=== PATIENT | female | born 1990 | race Caucasian/White ===

== ENCOUNTER → 2025-03-05 08:55 | Outpatient (CLI) | payer OTHER, SELFPAY ==
[2025-03-05 10:09] LABS: Appearance Urine UA CLEAR; Bilirubin Urine UA NEGATIVE (NEGATIVE); Color Urine UA YELLOW; Glucose Urine UA NEGATIVE (Negative); Ketones Urine UA NEGATIVE (NEGATIVE); Leukocyte Esterase Urine UA NEGATIVE (NEGATIVE); Nitrite Urine UA NEGATIVE (Negative); Occult Blood Urine UA NEGATIVE (Negative); Protein Urine UA NEGATIVE (Negative); Specific Gravity Urine UA <=1.005 (1.000-1.035); Urobilinogen Urine UA 0.2 E.U./dL (0.2)
[2025-03-05 10:12] LABS: Urine Volume 10mL (spun); pH Urine UA 6.5 (4.5-8.0)
[2025-03-05 10:14] LABS: Bacteria Urine None Seen; Culture Indicated Urine Cult Not Indicated; RBC Urine None Seen (0-5/HPF); Squamous Epithelial Cell Urine None Seen (0-5/HPF); WBC Urine None Seen (0-5/HPF)
== END ==
LOC: RESP 08:57
PROVIDERS: Referring Provider Chiropractor; Visit Provider Chiropractor
DX: J42 Unspecified chronic bronchitis (principal); E11.9 Type 2 diabetes mellitus without complications
CPT/HCPCS: 81001; 94060

== ENCOUNTER → 2025-03-07 11:18 | Outpatient (CLI) | payer OTHER, SELFPAY ==
[2025-03-07 13:32] LABS: Alanine Aminotransferase 16 IU/L (<35); Albumin 4.7 g/dL (3.5-5.0); Alkaline Phosphatase 39 U/L (38-126); Aspartate Aminotransferase 27 IU/L (14-36); BUN Creatinine Ratio 21.4 (6-22); Blood Urea Nitrogen 12 mg/dL (7-17); Calcium 9.5 mg/dL (8.4-10.2); Carbon Dioxide 27 mmol/L (22-32); Chloride 104 mmol/L (98-107); Estimated Glomerular Filt Rate > 60 mL/min (>60); Globulin 2.4 g/dL (1.7-4.1); Glucose 79 mg/dL (70-99); HEMOLYSIS < 15 (0-50); Potassium 4.5 mmol/L (3.4-5.1); Sodium 139 mmol/L (137-145); Total Protein 7.1 g/dL (6.3-8.2)
== END ==
LOC: LAB 11:19
PROVIDERS: Referring Provider Chiropractor; Visit Provider Chiropractor
DX: J42 Unspecified chronic bronchitis (principal); E11.9 Type 2 diabetes mellitus without complications
CPT/HCPCS: 36415; 80053

== ENCOUNTER → 2025-08-28 15:33 | Outpatient (CLI) | payer OTHER, SELFPAY ==
[2025-08-28 19:45] LABS: Urine N gonorrhoeae NOT DETECTED
[2025-08-28 20:10] LABS: Urine Chlamydia NOT DETECTED
== END ==
PROVIDERS: Visit Provider Obstetrics & Gynecology
DX: Z11.3 Encounter for screening for infections with a predominantly sexual mode of transmission (principal); O20.8 Other hemorrhage in early pregnancy; O09.521 Supervision of elderly multigravida, first trimester
CPT/HCPCS: 87491; 87591

== ENCOUNTER → 2025-08-30 16:47 | Outpatient (CLI) | payer OTHER, SELFPAY ==
--- NOTE | 2025-08-30 16:53 | DI.US.S_ITS ---
PROCEDURE: US OB <= 14 WEEKS FETUS
== END ==
PROVIDERS: PCP Internal Medicine; Referring Provider Obstetrics & Gynecology; Visit Provider Obstetrics & Gynecology
DX: O20.8 Other hemorrhage in early pregnancy (principal); O09.521 Supervision of elderly multigravida, first trimester; Z3A.08 8 weeks gestation of pregnancy
CPT/HCPCS: 76801; 76817

== ENCOUNTER → 2025-09-11 11:22 | Outpatient (CLI) | payer OTHER, SELFPAY ==
[2025-09-11 12:02] LABS: Add Manual Diff / Slide Review NO; Hematocrit 37.1 % (36-46); Hemoglobin 12.9 g/dL (12.0-16.0); Lymphocytes Absolute Auto 1600 /uL (1100-4500); Mean Corpuscular HGB Conc 34.7 % (30-36); Mean Corpuscular Hemoglobin 33.6 PG (26-34); Mean Corpuscular Volume 96.6 fL (80-100); Platelet Count 286 X10^3/uL (150-400)
[2025-09-11 12:41] LABS: Natera Collection Specimen Collected
[2025-09-11 12:45] LABS: Free T4, Direct Thyroxine 1.18 ng/dL (0.78-2.19)
[2025-09-11 12:59] LABS: Thyroid Stimulating Hormone 1.15 uIU/mL (0.47-4.68)
[2025-09-11 15:32] LABS: Hepatitis B Surface Antigen NEGATIVE s/c (NEGATIVE)
[2025-09-11 15:50] LABS: HIV 1 & 2 Ab/Ag 4th Gen Combo NEGATIVE (NEGATIVE); Hep C Virus Ab w/Reflex Quant NEGATIVE s/c (NEGATIVE)
== END ==
PROVIDERS: Obstetrics & Gynecology; PCP Internal Medicine; Referring Provider Obstetrics & Gynecology; Visit Provider Obstetrics & Gynecology
DX: Z34.00 Encounter for supervision of normal first pregnancy, unspecified trimester (principal); Z36.0 Encounter for antenatal screening for chromosomal anomalies
CPT/HCPCS: 36415; 80055; 84439; 84443; 86787; 86803; 86850; 86900; 86901; 87086; 87389